=== PATIENT | female | born 1950 | race Caucasian/White ===

== ENCOUNTER 2017-04-03 13:23 | Emergency (ER) | payer MEDICARE ==
[~2017-04-03] VITALS: Ht 170.2 cm; Wt 85.0 kg
[~2017-04-03 13:23] MED LIST: AMBIEN10 MG OR; CELEXA20 M1 PO; CEPHALEXIN500 MG OR; CIPRO500 MG OR; CIPRO500 MG PO; GEODON60 MG OR; KLONOPIN1 MG PO; KLONOPIN2 MG OR; LEXAPRO10 MG OR; NEXIUM40 M1 OR; PYRIDIUM200 MG OR; SEROQUEL200 MG PO; SIMVASTATIN20 MG OR; TRAZODONE100 MG PO; ULTRAM50 MG OR; VALTREX1 GM OR
[2017-04-03] MEDS ORDERED: OXYBUTYNIN5 M1 PO (13:41)
[2017-04-03] MEDS ORDERED: LEVOTHYROXIN50 MCG PO (13:42)
[2017-04-03] MEDS ORDERED: ASPIRIN81 MG PO (13:44)
[2017-04-03 14:43] LABS: HEMATOCRIT 34.8 % (37.0-47.0); HEMOGLOBIN 11.4 g/dl (12.0-16.0); IMMATURE GRANULOCYTES 0.3 % (0.0-1.0); MEAN CORPUSCULAR HGB 30.5 pG CALC (26.0-32.0); MEAN CORPUSCULAR HGB CONC 32.8 g/L CALC (32.0-36.0); NEUT# 2.07 thou/uL (2.00-7.15); RED BLOOD COUNT 3.74 mill/uL (4.20-5.60); RED CELL DISTRI WIDTH 13.5 % (11.5-15.5)
[2017-04-03 15:25] LABS: ACT PARTIAL THROMBO TIME 25.8 SECONDS (20.0-32.5); PROTHROMBIN TIME 10.4 SECONDS (9.0-12.5)
[2017-04-03 15:38] VITALS: BP 111/56
== END 2017-04-03 15:53 | disposition home or self-care (01) ==
LOC: ED 13:23
PROVIDERS: Emergency Medicine
DX: R04.0 Epistaxis (principal); F31.9 Bipolar disorder, unspecified; I34.1 Nonrheumatic mitral (valve) prolapse; F19.20 Other psychoactive substance dependence, uncomplicated

== ENCOUNTER 2017-12-16 17:02 | Observation (INO) | payer MEDICARE ==
[~2017-12-16] VITALS: Ht 170.2 cm; Wt 83.2 kg
[~2017-12-16 17:02] MED LIST changes: +ASPIRIN81 MG PO; +LEVOTHYROXIN50 MCG PO; +OXYBUTYNIN5 M1 PO
--- NOTE | 2017-12-16 17:08 | NUR ---
AMBULATORY TO ER ROOM 12, TO BED
[2017-12-16 17:40] LABS: HEMATOCRIT 35.4 % (37.0-47.0); HEMOGLOBIN 11.6 g/dl (12.0-16.0); IMMATURE GRANULOCYTES 0.2 % (0.0-1.0); MEAN CELL VOLUME 93.4 fL CALC (80.0-100.0); MEAN CORPUSCULAR HGB 30.6 pG CALC (26.0-32.0); MEAN CORPUSCULAR HGB CONC 32.8 g/L CALC (32.0-36.0); NEUT# 1.88 thou/uL (2.00-7.15); RED BLOOD COUNT 3.79 mill/uL (4.20-5.60); RED CELL DISTRI WIDTH 13.8 % (11.5-15.5); URINE BILIRUBIN - DIPSTICK NEGATIVE (NEGATIVE); URINE BLOOD DIPSTICK NEGATIVE (NEGATIVE); URINE COLOR YELLOW; URINE GLUCOSE - DIPSTICK NEGATIVE (NEGATIVE); URINE KETONE NEGATIVE (NEGATIVE); URINE NITRITE - DIPSTICK NEGATIVE (Negative); URINE PH 7.5 (4.5-8.0); URINE PROTEIN - DIPSTICK NEGATIVE (NEG-TRACE); URINE UROBILINOGEN - DIPSTICK 0.2 E.U./dL (0.2)
[2017-12-16 17:46] LABS: URINE CLARITY HAZY; URINE LEUK ESTERASE MODERATE (NEGATIVE); URINE SQUAMOUS EPITHELIAL CELL FEW EPI/hpf (0-FEW)
[2017-12-16 17:59] LABS: ALBUMIN 4.2 g/dL (3.2-5.0); ALKALINE PHOSPHATASE 100 u/l (38-126); ANION GAP 14 (6-22 (CALC)); BILIRUBIN, TOTAL 0.4 mg/dL (0.0-1.4); BUN 12 mg/dL (8-23); BUN/CREATININE RATIO 12 (12-20 (CALC)); CARBON DIOXIDE 27 mmol/l (22-30); CHLORIDE 103 mmol/l (95-108); GFR 55 ML/MIN (>=60 (CALC)); GFR FOR AFR.AMER. > 60 ML/MIN (>=60 (CALC)); LIPASE < 10 u/l (23-300); POTASSIUM 4.4 mmol/l (3.5-5.1); SGOT/AST 26 u/l (9-36); SGPT/ALT 28 u/l (11-66); SODIUM 140 mmol/l (137-146); TOTAL PROTEIN 6.7 g/dL (6.3-8.2)
--- NOTE | 2017-12-16 18:03 | NUR ---
PT UPDATED ON FINDINGS, TO CT SCAN AT THIS TIME.
[2017-12-16] MEDS ORDERED: RISAQUAD PO (20:20)
[2017-12-16] MEDS ORDERED: COLACE100 MG PO (20:20)
[2017-12-16] MEDS ORDERED: CRANBERRY425 M1 PO (20:21)
[2017-12-16 20:40] VITALS: BP 134/72
--- NOTE | 2017-12-16 20:40 | NUR ---
PATIENT ARRIVED TO THE FLOOR IN STABLE CONDITION VIA STRETCHER AND ACCOMPANIED BY ED NURSE. PATIENT WEIGHED AND SETTLED TO BED. ORIENT PATIENT TO ROOM CALL SYSTEM. BED IN LOW POSITION,, CALL LIGHT IN REACH.
--- NOTE | 2017-12-16 20:44 | NUR ---
PT TAKEN TO ROOM 273 BY KIMO, REPORT WAS GIVEN TO IVON.
--- NOTE | 2017-12-16 21:45 | NUR ---
PATIENT OFF THE FLOOR VIA WHEELCHAIR TO RADIOLOGY FOR CT SCAN.
--- NOTE | 2017-12-17 | NUR ---
PATIENT LYING IN BED AWAKE. NO APPARENT ACUTE DISTRESS NOTED AT THIS TIME.
--- NOTE | 2017-12-17 04:00 | NUR ---
PT RESTING QUIETLY. NO APPARENT ACUTE CHANGES NOTED IN PT'S CONDITION
[2017-12-17 04:20] VITALS: BP 90/49
[2017-12-17 05:35] LABS: ANION GAP 11 (6-22 (CALC)); BUN 11 mg/dL (8-23); BUN/CREATININE RATIO 12 (12-20 (CALC)); CARBON DIOXIDE 27 mmol/l (22-30); CHLORIDE 104 mmol/l (95-108); CREATININE 0.9 mg/dL (0.5-1.0); GFR > 60 ML/MIN (>=60 (CALC)); GFR FOR AFR.AMER. > 60 ML/MIN (>=60 (CALC)); MAGNESIUM 2.5 mg/dL (1.6-2.3); POTASSIUM 4.1 mmol/l (3.5-5.1); SODIUM 138 mmol/l (137-146)
[2017-12-17 08:45] VITALS: BP 102/61
--- NOTE | 2017-12-17 08:45 | NUR ---
ASSESSMENT IS COMPLETED: IV SITE IS FREE FROM REDNESS OR EDEMA. NO DISTRESS NOTED. BREATH SOUNDS ARE CLEAR, BILATERALLY. NO C/O SOB, HR IS REG, PULSES ARE STRONG. FAMILY IN THE ROOM.
--- NOTE | 2017-12-17 12:15 | NUR ---
PT IS RELAXING IN BED WITH MO DISTRESS NOTED PT HAD A CT SCAN COMPLETED AND TOELRATED WELL. FAMILY HAS BEEN IN AND OUT TODAY.
[2017-12-17 15:06] VITALS: BP 119/62
--- NOTE | 2017-12-17 16:15 | NUR ---
IN TO VISIT WITH PT. NEW ORDERS FOR PT . IV SITE REMAINS FREE FROM REDNESS OR EDEMA.
--- NOTE | 2017-12-17 19:00 | NUR ---
RECEIVED CHANGE OF SHIFT REPORT FROM JC GRAY. PATIENT SITTING IN BED WITH SPOUSE AT BEDSIDE. DENIES PAIN. NO APPARENT ACUTE DISTRESS OR DISCOMFORT NOTED. WILL CONTINUE TO MONUITOR.
[2017-12-17 19:33] VITALS: BP 114/65
[2017-12-17 19:33] LABS: C. DIFFICILE TOXIN A&B NEGATIVE (NEGATIVE)
[2017-12-17 23:54] VITALS: BP 83/50
--- NOTE | 2017-12-18 | NUR ---
PATIENT LYING IN BED WITH IV ABX INFUSING VIA PUMP. NO APPARENT ACUTE DISTRESS NOTED. WILL CONTINUE TO MONITOR.
[2017-12-18 04:00] VITALS: BP 78/52
--- NOTE | 2017-12-18 04:00 | NUR ---
PATIENT RESTING QUIETLY, NO APPARENT ACUTE CHANGES NOTED IN PATIENT'S CONDITION.
[2017-12-18 05:18] LABS: HEMATOCRIT 33.6 % (37.0-47.0); HEMOGLOBIN 11.1 g/dl (12.0-16.0); MEAN CELL VOLUME 93.9 fL CALC (80.0-100.0); RED BLOOD COUNT 3.58 mill/uL (4.20-5.60); RED CELL DISTRI WIDTH 13.7 % (11.5-15.5)
[2017-12-18 05:31] LABS: ANION GAP 11 (6-22 (CALC)); BUN 7 mg/dL (8-23); BUN/CREATININE RATIO 8 (12-20 (CALC)); CARBON DIOXIDE 28 mmol/l (22-30); CHLORIDE 108 mmol/l (95-108); GFR 55 ML/MIN (>=60 (CALC)); GFR FOR AFR.AMER. > 60 ML/MIN (>=60 (CALC)); MAGNESIUM 2.3 mg/dL (1.6-2.3); POTASSIUM 5.1 mmol/l (3.5-5.1); SODIUM 142 mmol/l (137-146)
[2017-12-18 07:08] VITALS: BP 79/49
--- NOTE | 2017-12-18 07:08 | NUR ---
PT ALERT, ORIENTED X3. SPEECH IS CLEAR. FACE SYMMETRICAL. PT HAS HX OF CATARACT. PT HAS STRONG UPPER AND LOWER EXTREMETIES. PT HAS STRONG APICAL, RADIAL, PEDAL PULSES. LUNG SOUNDS CLEAR, RESPIRATION EVEN AND UNLABORED. ACTIVE BOWEL SOUNDS X4. PT STATES NO NAUSEA, VOMITTING, OR PAIN. PT LAST BM WAS 12/17/2017. SKIN WARM, DRY, AND INTACT. PT HAS #20 GAUGE L AC. IV SITE HAS NO SWELLING OR REDNESS. CALL LIGHT WITHIN REACH, BED LOCKED AND IN LOWEST POSITON. SR UP X2. WILL CONTINUE TO MONITOR.
--- NOTE | 2017-12-18 08:30 | NUR ---
ASSESSMENT IS COMPLETED: BREATH SOUNDS ARE CLEAR,BILATERALLY, NO DISTRESS NOTED. IV SITE IS FREE FROM REDNESS OR EDEMA. HR IS REG, PULSES ARE STRONG X4. ABD IS SOFT WITH ACTIVE BS. CONTINUE TO OBSERVE AND MONITOR,.
[2017-12-18 09:55] VITALS: BP 90/58
[2017-12-18 11:45] VITALS: BP 113/65
--- NOTE | 2017-12-18 12:26 | NUR ---
PT IS RELAXING IN BED WITH NO DISTRESS NOTED. IV SITE IS FREE FROM REDNESS OR EDEMA.
[2017-12-18] MEDS ORDERED: MIRALAX3350 NF PO (13:27)
[2017-12-18] MEDS ORDERED: COLACE100 MG PO (13:27)
--- NOTE | 2017-12-18 15:58 | NUR ---
PT RECEIVED DISCHARGE INSTRUCTIONS AND VERBALIZED UNDERSTANDING. IV SITE DISCONTINEUD CATHETER INTACT NO REDNESS OR EDEMA. 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 CONTINUE TO OBSERVE AND MONITOR.
== END 2017-12-18 15:51 | disposition home or self-care (01) ==
LOC: ED 17:02 → ED-I 18:50 → ED 19:15 → MS2 19:16
PROVIDERS: Family Medicine; Nurse Practitioner Family; ADMIT Internal Medicine; ATTEND Internal Medicine
DX: R10.31 Right lower quadrant pain (principal); N39.0 Urinary tract infection, site not specified; K59.39 Other megacolon; K59.00 Constipation, unspecified; F31.9 Bipolar disorder, unspecified; I34.1 Nonrheumatic mitral (valve) prolapse; D64.9 Anemia, unspecified; Z98.84 Bariatric surgery status
CPT/HCPCS: Q9967

== ENCOUNTER 2017-12-30 06:01 | Day surgery (SDC) | payer MEDICARE ==
[~2017-12-30] VITALS: Ht 170.2 cm; Wt 81.6 kg
[~2017-12-30 06:01] MED LIST changes: +COLACE100 MG PO; +CRANBERRY425 M1 PO; +MIRALAX3350 NF PO; +RISAQUAD PO
[2017-12-30 12:38] VITALS: BP 109/67
== END 2017-12-30 08:40 | disposition home or self-care (01) ==
LOC: ENDO 06:01 → ORM 11:45 → ENDO 11:45
PROVIDERS: ATTEND Surgery
PROC: 0DJD8ZZ Inspection of Lower Intestinal Tract, Via Natural or Artificial Opening Endoscopic (ICD-10-PCS; principal; 2017-12-30)
DX: R10.31 Right lower quadrant pain (principal); R19.7 Diarrhea, unspecified; K59.00 Constipation, unspecified; R93.5 Abnormal findings on diagnostic imaging of other abdominal regions, including retroperitoneum; Q43.8 Other specified congenital malformations of intestine; K57.30 Diverticulosis of large intestine without perforation or abscess without bleeding

== ENCOUNTER 2018-01-21 21:16 | Emergency (ER) | payer MEDICARE ==
[~2018-01-21] VITALS: Ht 170.2 cm; Wt 81.0 kg
[2018-01-21 22:05] LABS: HEMATOCRIT 37.6 % (37.0-47.0); HEMOGLOBIN 12.3 g/dl (12.0-16.0); IMMATURE GRANULOCYTES 0.6 % (0.0-1.0); MEAN CELL VOLUME 93.3 fL CALC (80.0-100.0); MEAN CORPUSCULAR HGB 30.5 pG CALC (26.0-32.0); MEAN CORPUSCULAR HGB CONC 32.7 g/L CALC (32.0-36.0); NEUT# 4.97 thou/uL (2.00-7.15); RED BLOOD COUNT 4.03 mill/uL (4.20-5.60); RED CELL DISTRI WIDTH 13.2 % (11.5-15.5)
[2018-01-21 22:18] LABS: ALKALINE PHOSPHATASE 110 u/l (38-126); AMYLASE < 30 u/l (30-110); ANION GAP 17 (6-22 (CALC)); BUN 10 mg/dL (8-23); BUN/CREATININE RATIO 10 (12-20 (CALC)); CARBON DIOXIDE 27 mmol/l (22-30); CHLORIDE 96 mmol/l (95-108); GFR 55 ML/MIN (>=60 (CALC)); GFR FOR AFR.AMER. > 60 ML/MIN (>=60 (CALC)); LIPASE 55 u/l (23-300); POTASSIUM 4.2 mmol/l (3.5-5.1); SGPT/ALT 35 u/l (11-66); SODIUM 136 mmol/l (137-146); TOTAL PROTEIN 6.8 g/dL (6.3-8.2)
[2018-01-21 22:19] LABS: SGOT/AST 65 u/l (9-36)
[2018-01-22 02:30] VITALS: BP 93/53
== END 2018-01-22 02:35 ==
LOC: ED 21:16
PROVIDERS: Emergency Medicine
DX: K91.30 Postprocedural intestinal obstruction, unspecified as to partial versus complete (principal); Z98.0 Intestinal bypass and anastomosis status; R53.1 Weakness; R11.0 Nausea; K59.00 Constipation, unspecified
CPT/HCPCS: Q9967

== ENCOUNTER 2018-01-29 08:20 | Emergency (ER) | payer MEDICARE ==
[~2018-01-29] VITALS: Ht 170.2 cm; Wt 79.5 kg
[2018-01-29 09:13] LABS: HEMOGLOBIN 11.7 g/dl (12.0-16.0); IMMATURE GRANULOCYTES 1.3 % (0.0-1.0); MEAN CELL VOLUME 92.5 fL CALC (80.0-100.0); MEAN CORPUSCULAR HGB 29.3 pG CALC (26.0-32.0); MEAN CORPUSCULAR HGB CONC 31.6 g/L CALC (32.0-36.0); NEUT# 4.91 thou/uL (2.00-7.15); RED CELL DISTRI WIDTH 13.3 % (11.5-15.5)
[2018-01-29 09:35] LABS: ALBUMIN 4.1 g/dL (3.2-5.0); ALKALINE PHOSPHATASE 81 u/l (38-126); ANION GAP 18 (6-22 (CALC)); BILIRUBIN, TOTAL 0.6 mg/dL (0.0-1.4); BUN 10 mg/dL (8-23); BUN/CREATININE RATIO 10 (12-20 (CALC)); CARBON DIOXIDE 25 mmol/l (22-30); CHLORIDE 100 mmol/l (95-108); CREATININE 0.9 mg/dL (0.5-1.0); GFR > 60 ML/MIN (>=60 (CALC)); GFR FOR AFR.AMER. > 60 ML/MIN (>=60 (CALC)); LIPASE 12 u/l (23-300); POTASSIUM 4.4 mmol/l (3.5-5.1); SGOT/AST 27 u/l (9-36); SGPT/ALT 29 u/l (11-66); SODIUM 139 mmol/l (137-146); TOTAL PROTEIN 6.8 g/dL (6.3-8.2)
[2018-01-29] MEDS ORDERED: PERCOCET1 TA4 PO (11:05)
[2018-01-29 11:45] VITALS: BP 111/63
[2018-01-29 11:53] LABS: URINE BILIRUBIN - DIPSTICK NEGATIVE (NEGATIVE); URINE BLOOD DIPSTICK NEGATIVE (NEGATIVE); URINE COLOR YELLOW; URINE GLUCOSE - DIPSTICK NEGATIVE (NEGATIVE); URINE KETONE NEGATIVE (NEGATIVE); URINE LEUK ESTERASE NEGATIVE (NEGATIVE); URINE NITRITE - DIPSTICK NEGATIVE (Negative); URINE PROTEIN - DIPSTICK NEGATIVE (NEG-TRACE); URINE UROBILINOGEN - DIPSTICK 0.2 E.U./dL (0.2)
[2018-01-29 11:55] LABS: URINE CLARITY CLOUDY
== END 2018-01-29 11:45 ==
LOC: ED 08:20
PROVIDERS: Emergency Medicine
PROC: 0D9670Z Drainage of Stomach with Drainage Device, Via Natural or Artificial Opening (ICD-10-PCS; principal; 2018-01-29)
DX: K91.30 Postprocedural intestinal obstruction, unspecified as to partial versus complete (principal); Y83.2 Surgical operation with anastomosis, bypass or graft as the cause of abnormal reaction of the patient, or of later complication, without mention of misadventure at the time of the procedure; R10.11 Right upper quadrant pain; R11.2 Nausea with vomiting, unspecified
CPT/HCPCS: Q9967

== ENCOUNTER 2020-01-12 15:20 | Inpatient (IN) | payer MEDICARE ==
[~2020-01-12] VITALS: Ht 170.2 cm; Wt 87.5 kg
[~2020-01-12 15:20] MED LIST changes: +PERCOCET1 TA4 PO
--- NOTE | 2020-01-12 15:32 | NUR ---
PT TO ROOM WITH STEADY GAIT- REFDUSED WC
--- NOTE | 2020-01-12 15:33 | NUR ---
PT RETURNED TO WAITING ROOM- AWAITING ROOM
--- NOTE | 2020-01-12 16:33 | NUR ---
PT AMBULATED TO ROOM WITH STEADY GAIT
--- NOTE | 2020-01-12 17:00 | NUR ---
PT PRESENTS WTIH A PRODUCTIVE COUGH AND SOB. PT STATES BEING DX WITH BRONCHITIS LAST WEEK AND DISPITE TAKING ANTIBIOTICS AND STERIODS HER S/S HAVE NOT IMPROVED. PT IS AFIBRILE AT THE TIME. BOTH LUNGS HAVE WHEEZES AND CRACKLES. PT DENIES ANY CHEST PAIN. WILL CONTINUE TO MONITOR. SPO2 WNL
--- NOTE | 2020-01-12 17:30 | NUR ---
PT SITTING UP IN BED WITH AT BEDSIDE AND CALL LIGHT WITHIN REACH
[2020-01-12 17:55] LABS: HEMATOCRIT 38.7 % (37.0-47.0); HEMOGLOBIN 12.7 g/dl (12.0-16.0); IMMATURE GRANULOCYTES 0.7 % (0.0-5.0); MEAN CELL VOLUME 93.3 fL CALC (80.0-100.0); MEAN CORPUSCULAR HGB 30.6 pG CALC (26.0-32.0); MEAN CORPUSCULAR HGB CONC 32.8 g/L CALC (32.0-36.0); NEUT# 3.34 thou/uL (2.00-7.15); RED BLOOD COUNT 4.15 mill/uL (4.20-5.60); RED CELL DISTRI WIDTH 13.5 % (11.5-15.5)
--- NOTE | 2020-01-12 18:00 | NUR ---
PT ADVISED OF THE WAIT. LUNGS RECHECKED AFTER TWO NEB TREATMENTS. PT STATED FEELING LIGHT HEADED. EDU PROVIDED ON SIDE EFFECTS OF THE NEB TREATMENTS. HR 72. LUNGS CONTINUED TO HAVE WHEEZING AND CRACKLES.
[2020-01-12 18:14] LABS: ALBUMIN 4.3 g/dL (3.2-5.0); ALKALINE PHOSPHATASE 82 u/l (38-126); ANION GAP 13 (6-22 (CALC)); BILIRUBIN, TOTAL 0.4 mg/dL (0.0-1.4); BUN 18 mg/dL (8-23); BUN/CREATININE RATIO 22 (12-20 (CALC)); CARBON DIOXIDE 24 mmol/l (22-30); CHLORIDE 103 mmol/l (95-108); CREATININE 0.9 mg/dL (0.5-1.0); GFR > 60 ML/MIN (>=60 (CALC)); GFR FOR AFR.AMER. > 60 ML/MIN (>=60 (CALC)); POTASSIUM 4.2 mmol/l (3.5-5.1); SGOT/AST 44 u/l (9-36); SODIUM 136 mmol/l (137-146); TOTAL PROTEIN 7.3 g/dL (6.3-8.2)
--- NOTE | 2020-01-12 19:00 | NUR ---
PT ADVISED OF PENDING ADMISSION. PT VERBALIZED UNDERSTANDING. CALL LIGHT WITHIN REACH
--- NOTE | 2020-01-12 20:31 | NUR ---
REPORT CALLED TO [facility]. PATIENT READIED FOR TRANSPORT TO FLOOR.
[2020-01-12 20:40] VITALS: BP 136/81
--- NOTE | 2020-01-12 20:40 | NUR ---
PT ARRIVED TO [facility]2 VIA WHEELCHAIR ACCOMPANIED BY ER NURSE. PT ALERT AND ORIENTED X3, AMBULATED WITH STEADY GAIT TO DIGITAL STANDIING SCALE. ORIENTED PT TO ROOM AND CALL LIGHT. ADMISSION ASSESSMENT COMPLETED, CALL LIGHT IN REACH,CONTINUE TO MONITOR.
--- NOTE | 2020-01-13 | NUR ---
PT RESTING IN BED, MEDICATED ER MAR. CALL LIGHT IN REACH, CONTINUE TO MONITOR.
--- NOTE | 2020-01-13 03:16 | NUR ---
PT RESTING IN BED C/O HEADACHE, MEDICATED WITH TYLENOL. CALL LIGHT IN REACH,CONTINUE TO MONITOR.
[2020-01-13 04:15] VITALS: BP 115/56
--- NOTE | 2020-01-13 04:36 | NUR ---
PT RESTING IN BED WATCHING TV, NO SIGNS OF DISTESS NOTED, RESP EVEN AND UNLABORED. CALL LIGHT IN REACH,CONTINUE TO MONITOR.
--- NOTE | 2020-01-13 07:30 | NUR ---
REPORT RECEIVED FROM JC GARCIA. PT SITTING UPRIGHT IN BED. COMPLAINS OF A PERSISTANT COUGH, AND CHEST SORENESS R/T COUGH. PLAN OF CARE DISCUSSED. REPORTING OF CONCERNS ENCOURAGED. CALL LIGHT REVIEWED ADN IN REACH. PT STATES UNDERSTANDING.
[2020-01-13 08:32] VITALS: BP 107/65
--- NOTE | 2020-01-13 13:00 | NUR ---
DR. LEGGETT IN TO SEE PT. PLAN OF CARE UPDATED. PT. REPORTS COUGH HAS IMPROVED SOME.
[2020-01-13 15:00] VITALS: BP 94/43
--- NOTE | 2020-01-13 16:46 | NUR ---
PT SLEEPING AT THIS TIME. CALL LIGHT WITHIN REACH.
[2020-01-13 18:27] VITALS: BP 127/55
[2020-01-13 19:08] VITALS: BP 131/71
--- NOTE | 2020-01-13 19:36 | NUR ---
ASSESSMENT COMPLETED. NO DISTRESS NOTED. IV SITE PATENT AND SL FOR SHOWER, FLUSHES WELL. NON-PRODUCTIVE COUGH NOTED,WILL MEDICTAE POST SHOWER. ENCOURAGED TO CALL FOR ANY NEEDS. CALL LIGHT IS IN REACH. SOLID WASTE DISPOSAL MANAGER IN AT BEDSIDE.
--- NOTE | 2020-01-14 00:26 | NUR ---
PT. C/O YO AND COUGH, MEDICATED WITH ORDERED TYLENOL AND ROBITUSSIN, WILL REASSESS. DENIES FURTHER NEEDS. CALL LIGHT IS IN REACH.
--- NOTE | 2020-01-14 02:30 | NUR ---
RESTING IN BED WITH EYES CLOSED; NO DISTRESS NOTED; CALL LIGHT IS IN REACH.
[2020-01-14 04:51] VITALS: BP 126/74
--- NOTE | 2020-01-14 05:21 | NUR ---
PT. RESTING IN BED AND CONTINUES WITH COUGH,MEDICATED WITH ORDERED PRN ROBITUSSIN ALONG WITH SCHED MEDS. CALL LIGHT IS IN REACH. WILL CONTINUE TO MONITOR.
[2020-01-14 07:20] VITALS: BP 127/70
--- NOTE | 2020-01-14 10:14 | NUR ---
PT LAYING IN BED. A&O X3. NO DISTRESS NOTED. ZAINA HEAR UPON AUSCULTATION, PT DENIES ANY SOB. NO OTHER NEEDS AT THIS ITME. DISCUSSED POC. ASSESSMENT COMPLETED. CALL LIGHT IN REACH. CONTINUE TO MONITOR.
--- NOTE | 2020-01-14 14:30 | NUR ---
DR ELDRIDGE AND LEANNE IBANEZ AT BEDSIDE
[2020-01-14 15:00] VITALS: BP 131/69
--- NOTE | 2020-01-14 16:40 | NUR ---
PT TAKEN DOWN TO CT VIA WC ACCOMPANIED BY TEJAL MONTE
--- NOTE | 2020-01-14 16:59 | NUR ---
PT ARRIVED VIA WC BACK FROM CT ACCOMPANIED BY TEJAL
--- NOTE | 2020-01-14 18:06 | NUR ---
PT C/O SOB DUE TO COUGHING SPELL. PT PLACED ON O2 VIA NC @2L. EXPLAINED TO PT TO CONTROL BREATHING AND SLOW HER RATE. PER PT SHE IS STARTING TO BE BETTER
--- NOTE | 2020-01-14 18:10 | NUR ---
O2 CHECKED 94% WITH NC IN PLACE. EXPLAINED TO THE PT THAT I WOULD KEEP HER ON IT UNTIL HER BREATHING STABALIZES. PT VERBALIZED UNDERSTANDING. CONTINUE TO MONITOR.
[2020-01-14 19:00] VITALS: BP 140/68
--- NOTE | 2020-01-14 20:22 | NUR ---
ASSESSMENT COMPLETED. NON-PRODUCTIVE COUGH NOTED AND PT. MILLI PATINO AT THIS TIME. INCENTIVE SPIROMTER GIVEN AND EDUCATION GIVEN, PT. ABLE TO PULL 1500 AND GOAL SET TO 2000; O2 INFUSING PER NC PER ORDER. NETWORK ADMINISTRATOR WENT INTO DISCUSS CT RESULTS TOIGHT FROM EARLIER TODAY.
--- NOTE | 2020-01-14 23:43 | NUR ---
SCHED MED GIVEN. PT. ASLEEP AND AROUSES EASILY. NO DISTRESS NOTED. CALL LIGHT IS IN REACH.
--- NOTE | 2020-01-15 01:58 | NUR ---
MEDICATED WITH ORDERED PRN TYLENOL FOR YO AND COKE PROVIDED. DENIES FURTHER NEEDS.
[2020-01-15 04:39] VITALS: BP 140/72
[2020-01-15 07:04] VITALS: BP 122/72
--- NOTE | 2020-01-15 07:04 | NUR ---
PT SITTING IN BED WATCHING TV. A&O X3. NO DISTRESS NOTED. O2 VIA NC @ 2L IN PLACE. PER PT SHE WAS NOT ABLE TO SLEEP LAST NIGHT, EXPLAINED TO THE PT THAT RAG WILLOW OPERATOR WOULD BE NOTIFIED. IS @ BEDSIDE, PT DEMONSTRATING EFFECTIVE USE OF DEVICE REACHING 1500 X10. GOAL SET AT 2000. NON PRODUCTIVE COUGH NOTED. NO OTHER NEEDS AT THIS TIME. ASSESSMENT COMPLETED.DISCUSSED POC. CALL LIGHT IN REACH. CONTINUE TO MONITOR.
--- NOTE | 2020-01-15 10:15 | NUR ---
ASSISTED PT TO THE BATHROOM TO SHOWER. EVALUATED O2 BEFORE REMOVING, O2 SUSTAINED AT 96% WITHOUT THE O2. NO DISTRESS NOTED
--- NOTE | 2020-01-15 14:00 | NUR ---
PT SITTING IN BED. NO DISTRESS NOTED. CALL LIGHT IN REACH. CONTINUE TO MONITOR.
--- NOTE | 2020-01-15 14:30 | NUR ---
PTS O2 89-90%. O2 VIA NC @ 2L APPLIED AGAIN
--- NOTE | 2020-01-15 16:45 | NUR ---
PT SLEEPING IN BED. NO DISTRESS NOTED.
--- NOTE | 2020-01-15 19:25 | NUR ---
ASSESSMENT COMPLETED; IV SITE PATENT AND ORDERED IVF INFUSING WELL. DENIES NEEDS/PAIN. UPDATED ON POC. ENCOURAGED USE OF I/S. CALL LIGHT IS IN REACH. WILL CONTINUE TO MONITOR.
[2020-01-15 19:33] VITALS: BP 144/75
--- NOTE | 2020-01-15 22:30 | NUR ---
PT. REQUESTS PRN XANAX TO ASSIST WITH SLEEP; MEDICATED PER ORDER/EMAR. NEW IV STARTED TO RFA X1 ATTEMPT AND OLD IV SITE REMOVED FROM RAC WITH CATHETER TIP INTACT. PT. TOLERATED WELL.
--- NOTE | 2020-01-15 23:42 | NUR ---
PT. RESTING IN BED ON RIGHT SIDE WITH NO DISTRESS NOTED; DENIES NEEDS. SCHED MED GIVEN, CALL LIGHT IS IN REACH.
[2020-01-16 03:54] VITALS: BP 137/72
--- NOTE | 2020-01-16 04:09 | NUR ---
RESTING IN BED WITH NO DISTRESS NOTED; DENIES NEEDS.
[2020-01-16 05:13] LABS: HEMOGLOBIN 11.4 g/dl (12.0-16.0); MEAN CELL VOLUME 94.9 fL CALC (80.0-100.0); MEAN CORPUSCULAR HGB 30.9 pG CALC (26.0-32.0); MEAN CORPUSCULAR HGB CONC 32.6 g/L CALC (32.0-36.0); NEUT# 7.84 thou/uL (2.00-7.15); RED BLOOD COUNT 3.69 mill/uL (4.20-5.60); RED CELL DISTRI WIDTH 13.5 % (11.5-15.5)
[2020-01-16 05:30] LABS: ANION GAP 10 (6-22 (CALC)); BUN 19 mg/dL (8-23); BUN/CREATININE RATIO 27 (12-20 (CALC)); CARBON DIOXIDE 21 mmol/l (22-30); CHLORIDE 107 mmol/l (95-108); CREATININE 0.7 mg/dL (0.5-1.0); GFR > 60 ML/MIN (>=60 (CALC)); GFR FOR AFR.AMER. > 60 ML/MIN (>=60 (CALC)); POTASSIUM 4.3 mmol/l (3.5-5.1); SODIUM 134 mmol/l (137-146)
--- NOTE | 2020-01-16 07:15 | NUR ---
REPORT RECEIVED FROM JOSE MONDRAGON. PT RESTING IN BED SEMI FOWLERS WITH EYES CLOSED; AWAKENS SPONTANEOUSLY. ALERT AND ORIENTED X 3. DENIES PAIN. RESPIRATIONS EVEN AND UNLABORED ON OXYGEN 2L VIA NC. LOOSE NON PRODUCTIVE COUGH. LUNGS WITH RHONCHI THROUGHOUT. DECLINES ROBITUSSIN. PLAN OF CARE REVIEWED. PT ENCOURAGED TO VERBALIZE CONCERNS. STATES UNDERSTANDING. SAFETY MEASURES IN PLACE. CALL LIGHT WITHIN REACH.
[2020-01-16 08:02] VITALS: BP 131/70
--- NOTE | 2020-01-16 12:00 | NUR ---
PT SITTING UP IN BED WITH NO REQUESTS OR CONCERNS. IV FLUIDS INFUSING NOW AT [facility]; IV SITE APPEARS HEALTHY. SAFETY MEASURES IN PLACE. CALL LIGHT WITHIN REACH.
[2020-01-16] MEDS ORDERED: TESSALON PERLE100 MG PO (12:21)
[2020-01-16 15:50] VITALS: BP 137/78
--- NOTE | 2020-01-16 17:22 | NUR ---
PT ASLEEP AT THIS TIME.
--- NOTE | 2020-01-16 18:05 | NUR ---
BENZONATATE GIVEN FOR COUGH. PT C/O SOME CHEST DISCOMFORT RELATED TO COUGH.
[2020-01-16 19:22] VITALS: BP 127/70
--- NOTE | 2020-01-16 19:27 | NUR ---
ASSESSMENT COMPLETED. UPDATED ON POC. PT. C/O SORENESS TO CHEST AND SIDE FROM COUGHING, PRVIDED WITH WARM PACK; WILL REASSESS. INSTRUCTED PT. IF PAIN WORSENS TO NOTIFY THIS TANK OPERATOR AND VERBALIZES UNDERSTANDING. IV SITE PATENT AND ORDERED IVF INFUSING AT [facility]. ENCOURAGED USE OF I/S. CALL LIGHT IS IN REACH.
--- NOTE | 2020-01-16 19:45 | NUR ---
NOTIFIED DR. ZUNIGA OF PT'S C/O SORENESS TO CHEST WELL COUGH,ALSO THAT PT. IS NOT ON TELEMETRY. ORDERS RECIEVED TO CONTINUE TO MONITOR, NO CARDIAC WORKUP NECCESSARY AT THIS TIME PER PHYSICIAN.
--- NOTE | 2020-01-16 23:38 | NUR ---
PT. RESTING IN BED TALKING ON THE TELEPHONE. NO DISTRESS NOTED; SCHED MED GIVEN. CALL LIGHT IS IN REACH. VOICES NO CONCERNS.
--- NOTE | 2020-01-17 02:05 | NUR ---
RESTING IN BED WITH NO DISTRESS NOTED; DENIES NEEDS. CALL LIGHT IS IN REACH.
[2020-01-17 03:34] VITALS: BP 127/66
[2020-01-17 04:48] LABS: HEMATOCRIT 34.6 % (37.0-47.0); HEMOGLOBIN 11.6 g/dl (12.0-16.0); MEAN CELL VOLUME 92.8 fL CALC (80.0-100.0); MEAN CORPUSCULAR HGB 31.1 pG CALC (26.0-32.0); MEAN CORPUSCULAR HGB CONC 33.5 g/L CALC (32.0-36.0); RED BLOOD COUNT 3.73 mill/uL (4.20-5.60); RED CELL DISTRI WIDTH 13.5 % (11.5-15.5)
[2020-01-17 05:01] LABS: ANION GAP 10 (6-22 (CALC)); BUN 19 mg/dL (8-23); BUN/CREATININE RATIO 22 (12-20 (CALC)); CARBON DIOXIDE 24 mmol/l (22-30); CHLORIDE 103 mmol/l (95-108); CREATININE 0.9 mg/dL (0.5-1.0); GFR > 60 ML/MIN (>=60 (CALC)); GFR FOR AFR.AMER. > 60 ML/MIN (>=60 (CALC)); POTASSIUM 4.1 mmol/l (3.5-5.1); SODIUM 133 mmol/l (137-146)
--- NOTE | 2020-01-17 05:25 | NUR ---
PT. SITTING UPI N BED AND REQUESTS PRN TESSALON CATHY PER ORDER MEDICATED ALONG WITH OTHER SCHED MEDS. DENIES FURTHER NEEDS. CALL LIGHT IS IN REACH.
--- NOTE | 2020-01-17 07:10 | NUR ---
REPORT RECEIVED FROM JOSE MONDRAGON;PT APPEARS TO BE SLEEPING IN SEMI FOWLERS POSITION;NO S/S OF DISTRESS NOTED;RESPIRATIONS APPEAR EVEN AND UNLABORED ON O2 @ 2L VIA NC;IV FLUIDS INFUSING WITH EASE PER ORDER;ALL SAFETY PRECAUTIONS IN PLACE WITH BED IN THE LOWEST POSITION AND CALL LIGHT IN REACH;WILL CONTINUE TO MONITOR
[2020-01-17 08:15] VITALS: BP 114/59
--- NOTE | 2020-01-17 08:15 | NUR ---
PT RESTING IN SEMI FOWLERS POSITION WATCHING TV,A&O X3;VS OBTAINED AND ASSESSMENT COMPLETED;PT DENIES ANY CURRENT PAIN OR DISCOMFORTS,PAIN SCALE AND REPORTING EDUCATED;RESPIRATIONS SHALLOW ON O2 @ 2L VIA NC WITH WHEEZY LUNG SOUNDS NOTED;NON-PRODUCTIVE COUGH AT TIMES;ABDOMEN DISTENDED/SOFT ON PALPATION AND ACTIVE IN ALL 4 QUADRANTS;WEAK PEDAL PULSES;SKIN INTACT;#22G TO RFA INFUSING NOW AT [facility] PER ORDER;PT DENIES ANY ADDITIONAL NEEDS AT THIS TIME AND IS ENCOURAGED TO CALL FOR ASSISTANCE IF NEEDED;CALL LIGHT IN REACH;WILL CONTINUE TO MONITOR
--- NOTE | 2020-01-17 09:50 | NUR ---
AT BEDSIDE DISCUSSING POC.
--- NOTE | 2020-01-17 11:35 | NUR ---
PT RESTING IN SEMI FOWLERS POSITION WATCHING TV;RESPIRATIONS REMAIN EVEN AND UNLABORED ON O2 @ 2L VIA NC;PT DENIES ANY CURRENT PAIN OR NEEDS;IV FLUIDS INFUSING WITH EASE PER ORDER AND SOLUMEDROL ADMINISTERED AT THIS TIME;ASSESSMENT REMAINS UNCHANGED;ENCOURAGED TO CALL FOR ASSISTANCE IF NEEDED;FALL PRECAUTIONS IN PLACE WITH CALL LIGHT IN REACH;WILL CONTINUE TO MONITOR
[2020-01-17 15:06] VITALS: BP 102/53
--- NOTE | 2020-01-17 15:40 | NUR ---
PT APPEARS TO BE SLEEPING IN SEMI FOWLERS POSITION;RESPIRATIONS EVEN AND UNLABORED ON O2 @ 2L VIA NC;NO S/S OF DISTRESS NOTED;IV FLUIDS INFUSING WITH EASE PER ORDER;ALL SAFETY PRECAUTIONS REMAIN IN PLACE WITH CALL LIGHT IN REACH;WILL CONTINUE TO MONITOR
[2020-01-17 18:15] VITALS: BP 122/79
--- NOTE | 2020-01-17 20:00 | NUR ---
PATIENT RESTING IN BED AT THIS TIME-AWAKE ALERT AND ORIENTEDX3. PATIENT WITH IVF NS PATENT AND INFUSING AT KV[facility] RATE VIA RIGHT FOREARM SITE. PATIENT WITH PERSISTANT CROUPY NON-PRODUCTIVE COUGH. DECLINES COUGH MEDS AT THIS TIME. LAST BM WAS 01/13 BUT PATIENT CONT TO DECLINE ANY MEDS FOR CONSTIPATION. SAFETY PRECUTIONS REINFORCED. CALL LIGHT IN REACH. WILL CONT TO MONITOR.
--- NOTE | 2020-01-18 00:22 | NUR ---
PATIENT RESTING IN BED AT THIS TIME WITH O2 VIA NASAL CANNULA IN PLACE. HOB SLIGHTLY ELEVATED. MEDICATED WITH SOLU-MEDROL VIA RIGHT FOREARM SITE. SITE REMAINS HEALTHY AT THIS TIME WITH GOOD BLOOD RETURN. IVF PATENT AND INFUSING AT K[facility] RATE. APPEARS SLEEPING WITH EYES CLOSED. RESP ARE EVEN AND UNLABORED. CALL LIGHT IN REACH. WILL CONT TO MONITOR.
--- NOTE | 2020-01-18 03:39 | NUR ---
APPEARS SLEEPING WITH HOS ELEVATED AND O2 VIA NASAL CANNULA IN PLACE. RESP ARE EVEN AND UNLABORED. IVF PATENT AND INFUSING VIA RIGHT FOREARM SITE AT [facility] RATE. CALL LIGHT IN REACH. WILL CONT TO MONITOR.
--- NOTE | 2020-01-18 07:20 | NUR ---
REPORT RECEIVED FROM JOSE BOO. PT SITTING UP IN BED SEMI FOWLERS; ALERT AND ORIENTED. C/O LEFT SIDE PAIN WHEN SHE COUGHS. LUNGS ARE CLEAR. NO COUGHING NOTED WHILE IN ROOM. RESPIRATIONS EVEN AND UNLABORED ON OXYGEN 2L VIA NC. PLAN OF CARE REVIEWED. PT ENCOURAGED TO VERBALIZE CONCERNS. STATES UNDERSTANDING. SAFETY MEASURES IN PLACE. CALL LIGHT WITHIN REACH.
[2020-01-18 08:01] VITALS: BP 143/68
--- NOTE | 2020-01-18 11:29 | NUR ---
REPORT GIVEN TO JOSE KAN.
--- NOTE | 2020-01-18 11:42 | NUR ---
RECEIVED PT FROM [facility] AT THIS TIME, PT IS ALERT AND ORIENTED, O2 @ 2L VIA IN PLACE, C/O PAIN TO LEFT SIDE AGGRAVATED BY COUGHING, STATES SHE WANTS TO GO HOME TODAY, ALL NEEDS ADDRESSED, CALL OLEARY IN REACH.
[2020-01-18] MEDS ORDERED: IPRATROPIU0.5 MG/3 M NEB (12:42)
[2020-01-18] MEDS ORDERED: DOXYCYCL HYC100 MG PO (12:45)
[2020-01-18] MEDS ORDERED: PREDNISONE10 MG PO (12:45)
--- NOTE | 2020-01-18 15:52 | NUR ---
Discharge instructions given. Patient verbalizes understanding of same. Discharged in fair condition via Wheelchair to Home with spouse. All belongings sent with pt.
--- NOTE | 2020-01-20 11:50 | NUR ---
Pneumonia discharge follow up phone call completed. 01/20/20. Pt. states she is doing okay but has not bounced back as quickly as she had hoped. Cough is much improved from when she was hospilalized. Obtained all discharge medication and has been taking as directed. No fever, chills, extreme SOB, or fatigue is noted. Pt has a follow up appt with Dr. Govea on Thursday, 01/22. She says she has noticed some swelling in her feet and legs which she attributes to the prednisone. She states she did not let dr's office know this when making follow up appt. Suggested she might call them and tell them. Also suggested she weigh herself daily and notify dr of weight gain over 2 lbs. in a day. Phone disconnected during this time. Attempted to call again and reach pt. without success. Finally left message for patient telling her to contact hospital if there was anything we could do to assist her.
== END 2020-01-18 15:52 | disposition home or self-care (01) | DRG 195 ==
LOC: ED 15:20 → ED-I 18:47 → ED 18:57 → ED-I 18:58 → MS2 18:58
PROVIDERS: Family Medicine; Nurse Practitioner Family; ADMIT Internal Medicine; ATTEND Internal Medicine
DX: J18.9 Pneumonia, unspecified organism (principal); R09.02 Hypoxemia; F31.9 Bipolar disorder, unspecified; I34.1 Nonrheumatic mitral (valve) prolapse
CPT/HCPCS: G0378; J1650; Q9967

== ENCOUNTER 2020-08-08 20:11 | Emergency (ER) | payer MEDICARE ==
[~2020-08-08] VITALS: Ht 170.2 cm; Wt 86.3 kg
[~2020-08-08 20:11] MED LIST changes: +DOXYCYCL HYC100 MG PO; +IPRATROPIU0.5 MG/3 M NEB; +PREDNISONE10 MG PO; +TESSALON PERLE100 MG PO
[2020-08-08] MEDS ORDERED: OMEPRAZOLE DR40 MG PO (20:35)
[2020-08-08 21:02] LABS: HEMATOCRIT 37.1 % (37.0-47.0); IMMATURE GRANULOCYTES 0.2 % (0.0-5.0); MEAN CELL VOLUME 94.4 fL CALC (80.0-100.0); MEAN CORPUSCULAR HGB 30.5 pG CALC (26.0-32.0); MEAN CORPUSCULAR HGB CONC 32.3 g/dL CAL (32.0-36.0); NEUT# 2.07 thou/uL (2.00-7.15); RED BLOOD COUNT 3.93 mill/uL (4.20-5.60); RED CELL DISTRI WIDTH 13.9 % (11.5-15.5)
[2020-08-08 21:20] LABS: ALBUMIN 4.4 g/dL (3.2-5.0); ALKALINE PHOSPHATASE 74 u/l (38-126); AMYLASE 67 u/l (30-110); ANION GAP 9 (6-22 (CALC)); BILIRUBIN, TOTAL 0.5 mg/dL (0.0-1.4); BUN 13 mg/dL (8-23); BUN/CREATININE RATIO 13 (12-20 (CALC)); CARBON DIOXIDE 28 mmol/l (22-30); CHLORIDE 104 mmol/l (95-108); GFR 55 ML/MIN (>=60 (CALC)); GFR FOR AFR.AMER. > 60 ML/MIN (>=60 (CALC)); LIPASE 12 u/l (23-300); SGOT/AST 30 u/l (9-36); SODIUM 138 mmol/l (137-146); TOTAL PROTEIN 6.8 g/dL (6.3-8.2)
[2020-08-08 22:43] LABS: URINE BILIRUBIN - DIPSTICK NEGATIVE (NEGATIVE); URINE BLOOD DIPSTICK LARGE (NEGATIVE); URINE COLOR YELLOW; URINE GLUCOSE - DIPSTICK NEGATIVE (NEGATIVE); URINE KETONE NEGATIVE (NEGATIVE); URINE NITRITE - DIPSTICK NEGATIVE (Negative); URINE PH 5.5 (4.5-8.0); URINE PROTEIN - DIPSTICK TRACE mg/dL (NEG-TRACE); URINE SPECIFIC GRAVITY >=1.030; URINE UROBILINOGEN - DIPSTICK 0.2 E.U./dL (0.2)
[2020-08-08 22:44] LABS: URINE LEUK ESTERASE NEGATIVE (NEGATIVE)
[2020-08-08 22:49] LABS: URINE RBC >100 RBC/hpf (0-5)
[2020-08-08 22:50] LABS: URINE BACTERIA MODERATE hpf; URINE CALCIUM OXALATE CRYSTALS FEW lpf; URINE EPITHELIAL CELLS MANY EPI/hpf (0-FEW)
[2020-08-08 22:51] LABS: URINE YEAST MODERATE hpf
[2020-08-08] MEDS ORDERED: HYDROCO/APAP1 TA9 PO (22:58)
[2020-08-08] MEDS ORDERED: KEFLEX500 M1 PO (22:58)
[2020-08-08] MEDS ORDERED: TAMSULOSIN0.4 MG PO (22:58)
[2020-08-08] MEDS ORDERED: ZOFRAN4 MG/TAB PO (22:58)
[2020-08-08 23:17] VITALS: BP 130/65
== END 2020-08-08 23:20 | disposition home or self-care (01) ==
LOC: ED 20:11
DX: N20.1 Calculus of ureter (principal)

== ENCOUNTER 2020-09-07 22:28 | Emergency (ER) | payer MEDICARE ==
[~2020-09-07] VITALS: Ht 170.2 cm; Wt 83.0 kg
[~2020-09-07 22:28] MED LIST changes: +HYDROCO/APAP1 TA9 PO; +KEFLEX500 M1 PO; +OMEPRAZOLE DR40 MG PO; +TAMSULOSIN0.4 MG PO; +ZOFRAN4 MG/TAB PO
[2020-09-07 23:23] LABS: HEMATOCRIT 36.1 % (37.0-47.0); HEMOGLOBIN 11.9 g/dl (12.0-16.0); IMMATURE GRANULOCYTES 0.3 % (0.0-5.0); MEAN CELL VOLUME 92.3 fL CALC (80.0-100.0); MEAN CORPUSCULAR HGB 30.4 pG CALC (26.0-32.0); NEUT# 1.61 thou/uL (2.00-7.15); RED BLOOD COUNT 3.91 mill/uL (4.20-5.60); RED CELL DISTRI WIDTH 12.7 % (11.5-15.5)
[2020-09-07 23:46] LABS: BILIRUBIN, TOTAL 0.4 mg/dL (0.0-1.4); CREATININE 1.1 mg/dL (0.5-1.0); POTASSIUM 4.1 mmol/l (3.5-5.1); TOTAL PROTEIN 6.5 g/dL (6.3-8.2)
[2020-09-08] MEDS ORDERED: TORADOL PO (00:57)
[2020-09-08] MEDS ORDERED: ORPHENADRINE100 MG PO (00:57)
[2020-09-08 01:10] VITALS: BP 108/50
== END 2020-09-08 01:14 | disposition home or self-care (01) ==
LOC: ED 22:28
PROVIDERS: Emergency Medicine
DX: M54.6 Pain in thoracic spine (principal); F31.9 Bipolar disorder, unspecified
CPT/HCPCS: Q9967

== ENCOUNTER 2020-10-30 14:48 | Emergency (ER) | payer MEDICARE ==
[~2020-10-30] VITALS: Ht 170.2 cm; Wt 81.8 kg
[~2020-10-30 14:48] MED LIST changes: +ORPHENADRINE100 MG PO; +TORADOL PO
[2020-10-30 15:47] LABS: HEMATOCRIT 38.7 % (37.0-47.0); HEMOGLOBIN 12.7 g/dl (12.0-16.0); IMMATURE GRANULOCYTES 0.3 % (0.0-5.0); MEAN CELL VOLUME 92.4 fL CALC (80.0-100.0); MEAN CORPUSCULAR HGB 30.3 pG CALC (26.0-32.0); MEAN CORPUSCULAR HGB CONC 32.8 g/dL CAL (32.0-36.0); NEUT# 4.32 thou/uL (2.00-7.15); RED BLOOD COUNT 4.19 mill/uL (4.20-5.60); RED CELL DISTRI WIDTH 13.3 % (11.5-15.5)
[2020-10-30 16:02] LABS: ALBUMIN 4.7 g/dL (3.2-5.0); CREATININE 1.5 mg/dL (0.5-1.0); MAGNESIUM 1.8 mg/dL (1.6-2.3); POTASSIUM 4.7 mmol/l (3.5-5.1); TOTAL PROTEIN 7.6 g/dL (6.3-8.2)
[2020-10-30] MEDS ORDERED: COLACE100 MG PO (17:11)
[2020-10-30] MEDS ORDERED: RISAQUAD PO (17:11)
[2020-10-30] MEDS ORDERED: CITALOPRAM40 MG PO (17:12)
[2020-10-30] MEDS ORDERED: DITROPAN XL5 MG PO (17:14)
[2020-10-30] MEDS ORDERED: FIORICET 50-3001 CAP (17:14)
[2020-10-30] MEDS ORDERED: GABAPENTIN100 MG PO (17:14)
[2020-10-30] MEDS ORDERED: CETIRIZINE10 MG PO (17:15)
[2020-10-30] MEDS ORDERED: LOMOTIL2.5 MG PO (17:17)
[2020-10-30] MEDS ORDERED: ZOFRAN4 MG/TAB PO (17:17)
[2020-10-30 17:22] VITALS: BP 116/57
== END 2020-10-30 17:28 | disposition home or self-care (01) ==
LOC: ED 14:48
PROVIDERS: Family Medicine
DX: A08.4 Viral intestinal infection, unspecified (principal); F31.9 Bipolar disorder, unspecified; Z20.828 Contact with and (suspected) exposure to other viral communicable diseases

== ENCOUNTER 2021-07-02 16:08 | Emergency (ER) | payer MEDICARE ==
[~2021-07-02] VITALS: Ht 170.2 cm; Wt 81.0 kg
[~2021-07-02 16:08] MED LIST changes: +CETIRIZINE10 MG PO; +CITALOPRAM40 MG PO; +DITROPAN XL5 MG PO; +FIORICET 50-3001 CAP; +GABAPENTIN100 MG PO; +LOMOTIL2.5 MG PO
[2021-07-02 21:54] VITALS: BP 137/71
== END 2021-07-02 21:35 | disposition home or self-care (01) ==
LOC: ED 16:08
DX: M79.10 Myalgia, unspecified site (principal); F31.9 Bipolar disorder, unspecified; Z20.822 Contact with and (suspected) exposure to COVID-19; R05 Cough

== ENCOUNTER 2022-08-26 01:49 | Observation (INO) | payer MEDICARE ==
[~2022-08-26] VITALS: Ht 171.4 cm; Wt 88.0 kg
[2022-08-26] VITALS (15 sets, daily range): BP systolic 104–142; BP diastolic 51–80
[2022-08-26 03:07] LABS: HEMATOCRIT 36.1 % (37.0-47.0); HEMOGLOBIN 11.7 g/dl (12.0-16.0); IMMATURE GRANULOCYTES 0.2 % (0.0-5.0); MEAN CORPUSCULAR HGB 30.5 pG CALC (26.0-32.0); MEAN CORPUSCULAR HGB CONC 32.4 g/dL CAL (32.0-36.0); NEUT# 5.26 thou/uL (2.00-7.15); RED BLOOD COUNT 3.84 mill/uL (4.20-5.60); RED CELL DISTRI WIDTH 14.2 % (11.5-15.5)
[2022-08-26 03:25] LABS: ALBUMIN 4.1 g/dL (3.2-5.0); ALKALINE PHOSPHATASE 86 u/l (38-126); AMYLASE 110 u/l (30-110); ANION GAP 13 (6-22 (CALC)); BILIRUBIN, TOTAL 0.5 mg/dL (0.0-1.4); BUN 20 mg/dL (8-23); BUN/CREATININE RATIO 16 (12-20 (CALC)); CARBON DIOXIDE 26 mmol/l (22-30); CHLORIDE 104 mmol/l (95-108); CREATININE 1.2 mg/dL (0.5-1.0); GFR FOR AFR.AMER. 53 ML/MIN (>=60 (CALC)); GFR OTHER RACES 44 ML/MIN (>=60 (CALC)); LIPASE 16 u/l (23-300); POTASSIUM 4.5 mmol/l (3.5-5.1); SGOT/AST 34 u/l (9-36); SODIUM 139 mmol/l (137-146); TOTAL PROTEIN 6.8 g/dL (6.3-8.2)
[2022-08-26 03:37] LABS: MYOGLOBIN 52 ng/mL (0 - 62)
[2022-08-26 04:01] LABS: URINE BILIRUBIN - DIPSTICK NEGATIVE (NEGATIVE); URINE BLOOD DIPSTICK MODERATE (NEGATIVE); URINE COLOR YELLOW; URINE GLUCOSE - DIPSTICK 100 mg/dL (NEGATIVE); URINE KETONE NEGATIVE (NEGATIVE); URINE LEUK ESTERASE TRACE (NEGATIVE); URINE SPECIFIC GRAVITY 1.025; URINE UROBILINOGEN - DIPSTICK 0.2 E.U./dL (0.2)
[2022-08-26 04:02] LABS: URINE NITRITE - DIPSTICK NEGATIVE (Negative); URINE PROTEIN - DIPSTICK NEGATIVE (NEG-TRACE)
[2022-08-26 04:14] LABS: URINE BACTERIA MODERATE hpf; URINE EPITHELIAL CELLS MANY EPI/hpf (0-FEW); URINE RBC 25-50 RBC/hpf (0-5)
[2022-08-26] MEDS ORDERED: QUETIAPINE FUM300 MG (21:55)
[2022-08-27 04:54] VITALS: BP 110/47
[2022-08-27 05:39] LABS: ANION GAP 9 (6-22 (CALC)); BUN 10 mg/dL (8-23); BUN/CREATININE RATIO 10 (12-20 (CALC)); CARBON DIOXIDE 26 mmol/l (22-30); CHLORIDE 108 mmol/l (95-108); GFR FOR AFR.AMER. > 60 ML/MIN (>=60 (CALC)); GFR OTHER RACES 55 ML/MIN (>=60 (CALC)); POTASSIUM 3.9 mmol/l (3.5-5.1); SODIUM 139 mmol/l (137-146)
[2022-08-27 08:08] VITALS: BP 120/61
[2022-08-27] MEDS ORDERED: OMNICEF300 MG PO (12:33)
== END 2022-08-27 15:19 | disposition home or self-care (01) ==
LOC: ED 01:49 → ED-I 05:34 → ED 05:56 → ICU 05:57 → MS2 05:57
PROVIDERS: Emergency Medicine; ADMIT Internal Medicine; ATTEND Internal Medicine
DX: N12 Tubulo-interstitial nephritis, not specified as acute or chronic (principal); N13.30 Unspecified hydronephrosis; F31.9 Bipolar disorder, unspecified; F41.9 Anxiety disorder, unspecified; I34.1 Nonrheumatic mitral (valve) prolapse; Z23 Encounter for immunization; Z90.5 Acquired absence of kidney; Z98.84 Bariatric surgery status; Z20.822 Contact with and (suspected) exposure to COVID-19
CPT/HCPCS: J1650; Q9967; S0164

== ENCOUNTER 2024-01-11 17:34 | Emergency (ER) | payer MEDICARE ==
[2024-01-11] VITALS (19 sets, daily range): BP systolic 98–142; BP diastolic 45–91
[~2024-01-11] VITALS: Ht 171.4 cm; Wt 90.4 kg
[~2024-01-11 17:34] MED LIST changes: +GUAIFENESI100 MG/51 PO; +OMNICEF300 MG PO; +QUETIAPINE FUM300 MG
[2024-01-11] MEDS ORDERED: SODIUM CHLORIDE 0.9% 1,000 ML IV ONE (17:55)
[2024-01-11 18:21] LABS: BASO% 0.5 % (0-3); EOS% 1.4 % (0-8); HEMOGLOBIN 12.4 g/dl (12.0-16.0); IMMATURE GRANULOCYTES 0.2 % (0.0-5.0); MEAN CELL VOLUME 94.2 fL CALC (80.0-100.0); MEAN CORPUSCULAR HGB CONC 31.8 g/dL CAL (32.0-36.0); NEUT# 2.87 thou/uL (2.00-7.15); NEUT% 64.9 % (42-76); RED BLOOD COUNT 4.14 mill/uL (4.20-5.60); RED CELL DISTRI WIDTH 13.7 % (11.5-15.5)
[2024-01-11 18:40] LABS: ALKALINE PHOSPHATASE 82 u/l (38-126); BILIRUBIN, TOTAL 0.8 mg/dL (0.02-1.3); BUN 21 mg/dL (8-23); BUN/CREATININE RATIO 14 (12-20 (CALC)); CHLORIDE 103 mmol/l (95-108); CREATININE 1.5 mg/dL (0.5-1.0); GFR FOR AFR.AMER. 41 ML/MIN (>=60 (CALC)); GFR OTHER RACES 34 ML/MIN (>=60 (CALC)); POTASSIUM 4.1 mmol/l (3.5-5.1); SGOT/AST 45 u/l (9-36); SODIUM 137 mmol/l (137-146)
[2024-01-11 18:43] LABS: ALBUMIN 4.6 g/dL (3.2-5.0); ANION GAP 11 (6-22 (CALC)); CARBON DIOXIDE 27 mmol/l (22-30); TOTAL PROTEIN 7.6 g/dL (6.3-8.2)
[2024-01-11 20:08] LABS: URINE BLOOD DIPSTICK Negative (NEGATIVE); URINE GLUCOSE - DIPSTICK Negative (NEGATIVE); URINE KETONE Negative (NEGATIVE); URINE LEUK ESTERASE Negative (NEGATIVE); URINE NITRITE - DIPSTICK Negative (Negative); URINE PROTEIN - DIPSTICK Negative (NEG-TRACE); URINE SPECIFIC GRAVITY >=1.030; URINE UROBILINOGEN - DIPSTICK 0.2 E.U./dL (0.2)
[2024-01-11 20:11] LABS: URINE COLOR Yellow
[2024-01-11] MEDS ORDERED: KETOROLAC TROMETHAMINE 30 MG/ML SDV IV ONE (21:05)
[2024-01-11] MEDS ORDERED: ACETAMINOPHEN 500 MG TAB PO ONE (21:05)
[2024-01-11] MEDS ORDERED: MYRBETRIQ25 MG PO (21:36)
== END 2024-01-11 23:05 | disposition home or self-care (01) ==
LOC: ED 17:34
PROVIDERS: Family Medicine
DX: R55 Syncope and collapse (principal); N32.81 Overactive bladder; Z20.822 Contact with and (suspected) exposure to COVID-19
CPT/HCPCS: Q9967

== ENCOUNTER 2024-10-07 14:15 | Emergency (ER) | payer MEDICARE ==
[~2024-10-07] VITALS: Ht 170.2 cm; Wt 83.9 kg
[2024-10-07] VITALS (23 sets, daily range): BP systolic 95–137; BP diastolic 40–67
[~2024-10-07 14:15] MED LIST changes: +DECADRON4 MG PO; +MIDODRINE HYDR2.5 MG PO; +MYRBETRIQ25 MG PO; +TRAMADOL HYDROC50 M1 PO
[2024-10-07] MEDS ORDERED: KETOROLAC TROMETHAMINE 15 MG/ML SDV IV STA (14:30)
[2024-10-07] MEDS ORDERED: ISOVUE-300 (Iopamidol) 100 ML SDV IV ONE (14:30)
[2024-10-07] MEDS ORDERED: FAMOTIDINE 10MG/ML 2ML SDV IV ONE (14:35)
[2024-10-07 14:58] LABS: BASO% 0.2 % (0-3); EOS% 1.4 % (0-8); IMMATURE GRANULOCYTES 0.6 % (0.0-5.0); LYMPH% 12.5 % (15-41); MEAN CELL VOLUME 95.1 fL CALC (80.0-100.0); MEAN CORPUSCULAR HGB CONC 31.6 g/dL CAL (32.0-36.0); MONO% 7.6 % (2-13); NEUT# 8.4 thou/uL (2.00-7.15); NEUT% 77.7 % (42-76); RED BLOOD COUNT 4.66 mill/uL (4.20-5.60); RED CELL DISTRI WIDTH 13.4 % (11.5-15.5)
[2024-10-07 15:01] LABS: HEMATOCRIT 44.3 % (37.0-47.0)
[2024-10-07 15:18] LABS: ALBUMIN 4.5 g/dL (3.2-5.0); ALKALINE PHOSPHATASE 98 u/l (38-126); AMYLASE 72 u/l (30-110); BILIRUBIN, TOTAL 0.7 mg/dL (0.02-1.3); BUN 27 mg/dL (8-23); BUN/CREATININE RATIO 19 (12-20 (CALC)); CHLORIDE 105 mmol/l (95-108); CREATININE 1.4 mg/dL (0.5-1.0); ESTIMATED GFR 39 ML/MIN (>=90 (CALC)); LIPASE 40 u/l (23-300); SGOT/AST 30 u/l (9-36); SODIUM 138 mmol/l (137-146); TOTAL PROTEIN 7.3 g/dL (6.3-8.2)
[2024-10-07 15:25] LABS: ANION GAP 17 (6-22 (CALC)); CARBON DIOXIDE 21 mmol/l (22-30); POTASSIUM 4.9 mmol/l (3.5-5.1)
[2024-10-07] MEDS ORDERED: SODIUM CHLORIDE 0.9% 1,000 ML IV STA (15:35)
[2024-10-07] MEDS ORDERED: SEROQUEL300 MG PO (18:06)
[2024-10-07] MEDS ORDERED: CALCIUM & VITAMIN D3 (18:07)
[2024-10-07] MEDS ORDERED: [UNRECOGNIZED DRUG - OTHER] (18:08)
[2024-10-07] MEDS ORDERED: MULTI VIT PO (18:09)
[2024-10-07 19:28] LABS: URINE BILIRUBIN - DIPSTICK Negative (NEGATIVE); URINE BLOOD DIPSTICK Negative (NEGATIVE); URINE GLUCOSE - DIPSTICK Negative (NEGATIVE); URINE KETONE Negative (NEGATIVE); URINE LEUK ESTERASE Negative (NEGATIVE); URINE NITRITE - DIPSTICK Negative (Negative); URINE PH 5.5 (4.5-8.0); URINE PROTEIN - DIPSTICK Trace mg/dL (NEG-TRACE); URINE SPECIFIC GRAVITY 1.015; URINE UROBILINOGEN - DIPSTICK 0.2 E.U./dL (0.2)
[2024-10-07 19:40] LABS: URINE COLOR Yellow
[2024-10-07] MEDS ORDERED: ZOFRAN4 MG/TAB PO (20:10)
[2024-10-07] MEDS ORDERED: ONDANSETRON 4 MG/TAB ODT SL ONE (20:10)
== END 2024-10-07 21:16 | disposition home or self-care (01) ==
LOC: ED 14:15
PROVIDERS: Nurse Practitioner
DX: A08.4 Viral intestinal infection, unspecified (principal); F31.9 Bipolar disorder, unspecified
CPT/HCPCS: Q9967

== ENCOUNTER 2025-01-30 15:34 | Emergency (ER) | payer MEDICARE ==
[~2025-01-30] VITALS: Ht 170.2 cm; Wt 83.9 kg
[2025-01-30] VITALS (16 sets, daily range): BP systolic 126–157; BP diastolic 60–88
[~2025-01-30 15:34] MED LIST changes: +CALCIUM & VITAMIN D3; +MULTI VIT PO; +SEROQUEL300 MG PO; +[UNRECOGNIZED DRUG - OTHER]
[2025-01-30] MEDS ORDERED: SODIUM CHLORIDE 0.9% 1,000 ML IV ONE (15:50)
[2025-01-30] MEDS ORDERED: ONDANSETRON HCl 4 MG/2 ML SDV IV ONE (15:50)
[2025-01-30] MEDS ORDERED: KETOROLAC TROMETHAMINE 15 MG/ML SDV IV ONE (15:50)
[2025-01-30 15:53] LABS: URINE BILIRUBIN - DIPSTICK Negative (NEGATIVE); URINE BLOOD DIPSTICK Negative (NEGATIVE); URINE GLUCOSE - DIPSTICK Negative (NEGATIVE); URINE KETONE Negative (NEGATIVE); URINE LEUK ESTERASE Trace (NEGATIVE); URINE NITRITE - DIPSTICK Negative (Negative); URINE PROTEIN - DIPSTICK Negative (NEG-TRACE); URINE SPECIFIC GRAVITY 1.025; URINE UROBILINOGEN - DIPSTICK 0.2 E.U./dL (0.2)
[2025-01-30 15:55] LABS: URINE COLOR Yellow
[2025-01-30 16:07] LABS: BASO% 0.4 % (0-3); EOS% 1.5 % (0-8); HEMATOCRIT 35.9 % (37.0-47.0); HEMOGLOBIN 11.9 g/dl (12.0-16.0); IMMATURE GRANULOCYTES 0.2 % (0.0-5.0); LYMPH% 35.7 % (15-41); MEAN CELL VOLUME 90.7 fL CALC (80.0-100.0); MEAN CORPUSCULAR HGB 30.1 pG CALC (26.0-32.0); MEAN CORPUSCULAR HGB CONC 33.1 g/dL CAL (32.0-36.0); MONO% 8.1 % (2-13); NEUT# 2.53 thou/uL (2.00-7.15); NEUT% 54.1 % (42-76); RED BLOOD COUNT 3.96 mill/uL (4.20-5.60); RED CELL DISTRI WIDTH 13.2 % (11.5-15.5)
[2025-01-30 16:20] LABS: ALBUMIN 4.4 g/dL (3.2-5.0); BILIRUBIN, TOTAL 0.7 mg/dL (0.02-1.3); POTASSIUM 4.5 mmol/l (3.5-5.1)
[2025-01-30] MEDS ORDERED: PIPERACILLIN Sodium-Tazobactam 3.375 GM in SODIUM CHLORIDE 0.9% 100 ML IV ONE (18:20)
[2025-01-30] MEDS ORDERED: MORPHINE SULFATE 4 MG/ML VIAL IV ONE (18:25)
[2025-01-30] MEDS ORDERED: AMOX/K CLAV875 M1 PO (18:27)
[2025-01-30] MEDS ORDERED: LORTAB 5/3255 MG PO (18:27)
== END 2025-01-30 19:38 | disposition home or self-care (01) ==
LOC: ED 15:34
PROVIDERS: Nurse Practitioner
DX: K52.9 Noninfective gastroenteritis and colitis, unspecified (principal); F31.9 Bipolar disorder, unspecified
CPT/HCPCS: J1885; J2405; J2543; Q9967